=== PATIENT | male | born 1945 | race Caucasian/White ===

== ENCOUNTER 2016-09-02 09:53 | Emergency (ER) | payer MEDICARE, MEDICAID ==
[~2016-09-02] VITALS: Ht 172.7 cm; Wt 70.0 kg
[~2016-09-02 09:53] MED LIST: METH10TA2 PO
[2016-09-02 09:54] VITALS: BP 166/94
== END 2016-09-02 13:57 | disposition left against medical advice (07) ==
LOC: ER 10:04
DX: Z04.3 Encounter for examination and observation following other accident (principal); Z53.21 Procedure and treatment not carried out due to patient leaving prior to being seen by health care provider